=== PATIENT | female | born 1985 | race Caucasian/White ===

== ENCOUNTER 2016-11-06 10:17 | Emergency (ER) | payer OTHER ==
[~2016-11-06] VITALS: Ht 167.6 cm; Wt 55.1 kg
[~2016-11-06 10:17] MED LIST: BCP
[2016-11-06 10:51] VITALS: BP 120/71
[2016-11-06] MEDS ORDERED: MEDROL4 MG PO (11:15)
[2016-11-06] MEDS ORDERED: KEFLEX500 MG PO (11:35)
== END 2016-11-06 11:48 | disposition home or self-care (01) ==
LOC: EME 10:17
DX: T63.441A Toxic effect of venom of bees, accidental (unintentional), initial encounter (principal); L03.115 Cellulitis of right lower limb; Z88.1 Allergy status to other antibiotic agents; Z91.040 Latex allergy status
CPT/HCPCS: 99281; 99282